=== PATIENT | female | born 1945 | race Caucasian/White ===

== ENCOUNTER 2018-07-09 11:19 | Emergency (ER) | payer OTHER ==
[~2018-07-09] VITALS: Wt 77.2 kg
[2018-07-09] MEDS ORDERED: KETOROLAC 30 MG INJ IV STA (11:49)
[2018-07-09] MEDS ORDERED: ONDANSETRON 4 MG INJ IV STA (11:49)
[2018-07-09] MEDS ORDERED: METF500T24 PO (12:41)
[2018-07-09] MEDS ORDERED: CEFD300C2 PO (12:42)
[2018-07-09] MEDS ORDERED: TRAM50TA2 PO (13:06)
--- NOTE | 2018-07-09 13:09 | ERD ---
ER Documentation Chief Complaint Chief Complaint ABD PAIN LOWER R SIDED X 3 DAYS HPI 73-year-old female presents the emergency department complaining of abdominal pain. Patient states that she was recently diagnosed with a urinary tract infection and started taking antibiotics. Over the last 3 days, she began having a right flank/lower back pain. Pain is localized to the right flank area does not radiate. Pain is associated with no fevers or chills or vomiting. She reports the pain is mild to moderate. She reports no diarrhea, no blood in her stool. She reports no other vaginal or gynecologic complaints. ROS All systems reviewed and are negative except as per history of present illness. Medications Home Meds Active Scripts Tramadol HCl (Tramadol HCl) 50 Mg Tablet, 50 MG PO Q6 PRN for PAIN, #20 TAB Prov:RUBY PERALTA 07/09/18 Reported Medications Cefdinir (Cefdinir) 300 Mg Capsule, 300 MG PO BID, #60 CAP STARTED 07-05-18 FOR 10 DAYS 07/09/18 Metformin Hcl* (Metformin Hcl*) 500 Mg Tablet, 500 MG PO WITH BREAKFAST DINNE, #60 TAB 07/09/18 Allergies Allergies: Coded Allergies: No Known Allergy (Unverified , 07/09/18) PMhx/Soc Medical and Surgical Hx: pt denies Surgical Hx History of Surgery: No Anesthesia Reaction: No Hx Neurological Disorder: No Hx Respiratory Disorders: No Hx Cardiac Disorders: No Hx Psychiatric Problems: No Hx Miscellaneous Medical Probl: Yes (DM) Hx Alcohol Use: No Hx Substance Use: No Hx Tobacco Use: No Smoking Status: Never smoker FmHx Noncontributory for chief complaint Physical Exam Vitals Vital Signs Date Temp Pulse Resp B/P (MAP) Pulse Ox O2 O2 Flow FiO2 Time Delivery Rate 07/09/18 98.5 79 18 124/65 99 11:24 (84) Physical Exam GENERAL: The patient is well developed and appropriate for usual state of health in no apparent distress HEENT: Pupils equal, round, and reactive to light. EOMI. There is no scleral icterus. NECK: C-spine is soft and supple, there is no meningismus. There is no cervical lymphadenopathy. LUNGS: Clear to auscultation bilaterally. There are no rales, wheezes or rhonchi. HEART: Regular rate and rhythm, no murmurs, clicks, rubs or gallops. ABDOMEN: Soft, non-tender, non-distended. There are bowel sounds in all four quadrants. No rebound or guarding. No CVA tenderness EXTREMITIES: There is no peripheral cyanosis or edema. No focal swelling or erythema. NEURO: The patient moves all four extremities with 5/5 strength. Cranial nerves II - XII are intact. Normal gait. Alert and oriented SKIN: There is no apparent rash or petechiae. HEME/LYMPHATIC: There is no evidence of excessive bruising or lymphedema. PSYCHIATRIC: The patient does not appear anxious or depressed. Result Diagram: 07/09/18 1200 07/09/18 1200 Results 24 hrs Laboratory Tests Test 07/09/18 12:00 White Blood Count 5.6 10^3/ul Red Blood Count 4.22 10^6/ul Hemoglobin 13.0 g/dl Hematocrit 39.8 % Mean Corpuscular Volume 94.3 fl Mean Corpuscular Hemoglobin 30.8 pg Mean Corpuscular Hemoglobin Concent 32.7 g/dl Red Cell Distribution Width 13.4 % Platelet Count 188 10^3/UL Mean Platelet Volume 9.7 fl Immature Granulocytes % 0.200 % Neutrophils % 47.5 % Lymphocytes % 40.5 % Monocytes % 10.0 % Eosinophils % 1.1 % Basophils % 0.7 % Nucleated Red Blood Cells % 0.0 /100WBC Immature Granulocytes # 0.010 10^3/ul Neutrophils # 2.7 10^3/ul Lymphocytes # 2.3 10^3/ul Monocytes # 0.6 10^3/ul Eosinophils # 0.1 10^3/ul Basophils # 0.0 10^3/ul Nucleated Red Blood Cells # 0.0 10^3/ul Urine Color STRAW Urine Clarity CLEAR Urine pH 6.0 Urine Specific [place] 1.005 Urine Ketones NEGATIVE mg/dL Urine Nitrite NEGATIVE mg/dL Urine Bilirubin NEGATIVE mg/dL Urine Urobilinogen NEGATIVE mg/dL Urine Leukocyte Esterase NEGATIVE Matt/ul Urine Hemoglobin NEGATIVE mg/dL Urine Glucose NEGATIVE mg/dL Urine Total Protein NEGATIVE mg/dl Sodium Level 144 mmol/L Potassium Level 4.4 mmol/L Chloride Level 106 mmol/L Carbon Dioxide Level 30 mmol/L Anion Gap 8 Blood Urea Nitrogen 18 mg/dl Creatinine 0.61 mg/dl Est Glomerular Filtrat Rate mL/min mL/min Glucose Level 99 mg/dl Calcium Level 9.5 mg/dl Total Bilirubin 0.2 mg/dl Direct Bilirubin 0.00 mg/dl Indirect Bilirubin 0.2 mg/dl Aspartate Amino Transf (AST/SGOT) 36 IU/L Alanine Aminotransferase (ALT/SGPT) 12 IU/L Alkaline Phosphatase 93 IU/L Troponin I < 0.012 ng/ml Total Protein 8.0 g/dl Albumin 4.3 g/dl Globulin 3.70 g/dl Albumin/Globulin Ratio 1.16 Lipase 73 U/L Current Medications Medications Dose Sig/Chandana Start Time Status Last (Trade) Ordered Route PRN Stop Time Admin Dose Reason Admin Ondansetron 4 mg ONCE STAT 07/09/18 DC 07/09/18 HCl (Zofran IV 11:49 12:04 Inj) 07/09/18 11:51 Ketorolac 30 mg ONCE STAT 07/09/18 DC 07/09/18 Tromethamine IV 11:49 12:05 (Toradol) 07/09/18 11:51 Procedures/MDM Patient was taken to a room, seen and evaluated. Comfort measures were initiated. Diagnostic tests were ordered and reviewed. 3 LEAD RHYTHM STRIP: [Normal sinus rhythm without ectopy] EK lead EKG reviewed by myself: [Normal Sinus Rhythm] [Normal [place] and intervals] [No ST elevation, depression, or T wave inversion] Impression: [Normal EKG] RADIOLOGY: [reviewed with the radiologist] REEVALUATION: 1300: Diagnostic tests were appreciated and discussed with the patient. Serial examinations of the abdomen remained benign. She remained well-appearing. MEDICAL DECISION MAKIN-year-old female presents with flank pain. Diagnostic tests show no evidence of pyelonephritis, kidney stones or other intra-abdominal or pelvic concerns. She also shows no evidence of appendicitis or other high-risk intra-abdominal concerns. After supportive management, patient appears clinically well and appropriate for outpatient supportive care. Departure Diagnosis: Primary Impression: Abdominal pain Condition: Stable Patient Instructions: Abdominal Pain Additional Instructions: Consulte a eid mdico para el seguimiento segn lo discutido. Lleve mitch copia de los resultados de eid prueba, si corresponde, a esta visita de seguimiento. Consulte a eid mdico o regrese aqu si caity sntomas no mejoran leena se esperaba. En cualquier momento, regrese al departamento de emergencias por cualquier cambio o empeoramiento en caity sntomas. RUBY PERALTA Jul 09, 2018 13:09
[2018-07-09 13:30] VITALS: BP 104/59; PULSE 72; RESP 18
== END 2018-07-09 13:47 | disposition home or self-care (01) ==
LOC: E/R 11:19
DX: R10.31 Right lower quadrant pain (principal); E11.9 Type 2 diabetes mellitus without complications; Z79.84 Long term (current) use of oral hypoglycemic drugs
CPT/HCPCS: 36415; 71045; 74176; 80053; 81003; 83690; 84484; 85025; 93005; 96374; 96375; 99285; J1885; J2405